=== PATIENT | female | born 1975 | race Caucasian/White ===

== ENCOUNTER 2024-09-07 20:12 | Emergency (ER) | payer OTHER ==
[~2024-09-07] VITALS: Ht 157.5 cm; Wt 98.7 kg
[2024-09-07 20:14] VITALS: O2SAT 100
[2024-09-07] MEDS: HYDROCODONE/ACETAMINOPHEN 5/325MG TABLET PO ONE (21:36)
[2024-09-07 22:06] LABS: ADD RBC MORPHOLOGY YES; BASOPHILS % 0.6 % (0.0-2.0); DIFFERENTIAL COMMENT 1; EOSINOPHILS % 0.1 % (0.0-5.0); HEMATOCRIT. 34.5 % (36.0-48.0); HEMOGLOBIN. 10.6 g/dL (12.0-16.0); LYMPHOCYTES % 7.6 % (20.0-50.0); MEAN CORPUSCULAR HEMOGLOBIN 18.9 pg (28.0-32.0); MEAN CORPUSCULAR HGB CONC 30.9 g/dL (31.0-37.0); MEAN CORPUSCULAR VOLUME 61.1 fL (81.0-99.0); MEAN PLATELET VOLUME 8.9 fl (7.4-10.4); MONOCYTES % 2.3 % (2.0-8.0); NEUTROPHILS % 89.4 % (40.0-76.0); PLATELET 324 x1000/uL (130-400); RED BLOOD CELL COUNT 5.64 mill/uL (4.2-5.4); RED CELL DISTRIBUTION WIDTH 23.5 % (11.6-14.6); WHITE BLOOD COUNT 14.4 x1000/uL (4.5-11.0)
[2024-09-07 22:17] LABS: CHLORIDE 107 mEq/L (98-107); POTASSIUM 3.9 mEq/L (3.5-5.1); SODIUM 142 mEq/L (136-145)
[2024-09-07 22:18] LABS: CARBON DIOXIDE 25 mEq/L (21-32)
[2024-09-07 22:22] LABS: HYPOCHROMASIA 2+; MICROCYTOSIS 3+
[2024-09-07 22:23] LABS: GLUCOSE 135 mg/dL (70-105); PLATELET ESTIMATE NORMAL; UREA NITROGEN BLOOD 14 mg/dL (9-23)
[2024-09-07 22:25] LABS: ALANINE AMINOTRANSFERASE 12 IU/L (10-49); ASPARTATE AMINOTRANSFERASE 16 IU/L (<34); BILIRUBIN TOTAL 0.3 mg/dL (0.1-1.0); PROTEIN TOTAL 6.8 g/dL (6.0-8.3)
[2024-09-07 22:27] LABS: BILIRUBIN DIRECT < 0.1 mg/dL (<=3.0)
[2024-09-07] MEDS ORDERED: CEFTRIAXONE 1GM/50ML 50 ML IV ONE (22:45)
[2024-09-08] MEDS ORDERED: MORPHINE SULFATE 2 MG/ML INJ (NOT FOR IM USE) IV PRN (00:15)
[2024-09-08] MEDS ORDERED: ZOLPIDEM TARTRATE 5MG TABLET PO PRN (00:15)
[2024-09-08] MEDS ORDERED: CLONIDINE 0.1MG TABLET PO PRN (00:15)
[2024-09-08] MEDS ORDERED: ACETAMINOPHEN 325MG TABLET PO PRN (00:15)
[2024-09-08] MEDS ORDERED: ONDANSETRON HCL 4MG/2ML INJ IV PRN (00:15)
[2024-09-08] MEDS: SODIUM CHLORIDE 0.9% 1,000 ML IV ONE (00:29)
[2024-09-08] MEDS: ONDANSETRON HCL 4MG/2ML INJ IV STA (00:29)
[2024-09-08] MEDS: MORPHINE SULFATE 4 MG/ML INJ (FOR IV/IM USE) IV STA (00:29)
[2024-09-08 00:33] LABS: *AMPHETAMINES SCREEN URINE NEGATIVE (NEGATIVE); *BARBITURATES SCREEN URINE NEGATIVE (NEGATIVE); *BENZODIAZEPINES SCREEN URINE NEGATIVE (NEGATIVE); *COCAINE SCREEN URINE NEGATIVE (NEGATIVE); METHADONE URINE SCREEN NEGATIVE (NEGATIVE)
[2024-09-08 00:34] LABS: CANNABINOID URINE SCREEN NEGATIVE (NEGATIVE); ECSTASY MDMA SCREEN URINE NEGATIVE (NEGATIVE); OPIATES URINE SCREEN NEGATIVE (NEGATIVE); PHENCYCLIDINE URINE SCREEN NEGATIVE (NEGATIVE)
[2024-09-08] MEDS: PIPERACILLIN/TAZO 3.375G/50ML 50 ML IV NR (00:38)
[2024-09-08] MEDS: SODIUM CHLORIDE 0.9% 1,000 ML IV SCH (01:04)
[2024-09-08 01:45] VITALS: TEMP 37.05852
[2024-09-08 04:53] VITALS: BP 111/63; PULSE 62; RESP 18; O2SAT 100
[2024-09-08 05:21] LABS: COLOR URINE YELLOW (YELLOW)
[2024-09-08 05:31] LABS: CLARITY URINE TURBID (CLEAR); GLUCOSE URINE NEGATIVE (NEGATIVE); KETONES URINE NEGATIVE (NEGATIVE); PROTEIN URINE TRACE (NEGATIVE)
[2024-09-08 05:32] LABS: LEUKOCYTE ESTERASE URINE NEGATIVE (NEGATIVE); NITRITE URINE NEGATIVE (NEGATIVE); OCCULT BLOOD URINE 1+ (NEGATIVE); UROBILINOGEN URINE 0.2 E.U./dL (0.2-1.0)
[2024-09-08] MEDS ORDERED: PIPERACILLIN/TAZO 3.375G/50ML 50 ML IV SCH ×2 (06:00→09:00)
[2024-09-08 06:24] LABS: SQUAMOUS EPITHELIAL CELL URINE FEW /lpf (RARE/1+)
[2024-09-08 06:28] LABS: WBC URINE 0-2 /hpf (0-2)
[2024-09-08 06:29] LABS: BACTERIA URINE 1+; CALCIUM OXALATE CRYSTALS URINE 1+ /lpf
[2024-09-08 06:31] LABS: URIC ACID CRYSTALS URINE 1+ /lpf
[2024-09-08 06:34] LABS: RBC URINE 0-2 /hpf (0-2)
[2024-09-08] MEDS ORDERED: PANTOPRAZOLE SODIUM 40 MG/VIAL IV SCH (09:00)
== END 2024-09-08 05:09 | disposition short-term general hospital (02) ==
LOC: ER 20:12
DX: K80.00 Calculus of gallbladder with acute cholecystitis without obstruction (principal); I10 Essential (primary) hypertension
CPT/HCPCS: 99285; 76705; 71045; 80076; 80305; 80048; 81003; 83690; 85025; 87086; 36415; 93005; 96365; 96375; 96361; J0696; J2405; J2270; J7030; J2543